=== PATIENT | female | born 1990 | race Caucasian/White ===

== ENCOUNTER → 2017-06-23 | Outpatient (CLI) | payer BC, OTHER | END | disposition home or self-care (01) | LOC: C.LABMFLN 12:08 | PROVIDERS: ATTEND Family Medicine | DX: J02.9 Acute pharyngitis, unspecified (principal) ==

== ENCOUNTER → 2017-08-29 | Outpatient (CLI) | payer OTHER | END | disposition home or self-care (01) | LOC: C.LABMFLN 12:56 | PROVIDERS: ATTEND Family Medicine | DX: J02.9 Acute pharyngitis, unspecified (principal) ==

== ENCOUNTER → 2017-10-10 | Outpatient (CLI) | payer OTHER ==
--- NOTE | 2017-10-10 09:40 | DIAGNOSTIC IMAGING REPORT ---
CT OF THE SINUSES WITHOUT CONTRAST FUSION PROTOCOL CLINICAL HISTORY: Recurrent acute and chronic sinusitis. COMPARISON STUDY: No previous studies for comparison. TECHNIQUE: Axial images of the sinuses were obtained without intravenous contrast according to Fusion protocol. Coronal reformats were viewed. FINDINGS: Visualized portions of the intracranial contents are unremarkable on this unenhanced exam. The mastoid air cells are clear. The ossicles are intact. There is no fluid within the middle ears. The orbits are within normal limits. Mild polypoid mucosal thickening of the sinuses is noted, most evident within the left maxillary and sphenoid sinuses. The ostiomeatal complexes are patent. The frontal sinuses are clear. Ethmoid sinuses are clear. The right maxillary sinus is clear. Mild rightward deviation of the nasal septum with spur formation is noted. There is no mass or bony destruction within the sinuses or nasal cavity. IMPRESSION: 1. Mild polypoid mucosal thickening of the left maxillary and sphenoid sinuses. No CT evidence for acute sinusitis. Patent major drainage pathways. 2. Mild rightward deviation of the nasal septum with spur formation. Electronically signed by: Abdullahi Mei M.D. 10/10/2017 9:39 AM Dictated Date/Time: 10/10/2017 9:36 AM
== END | disposition home or self-care (01) ==
LOC: C.CTS 09:13
DX: J32.9 Chronic sinusitis, unspecified (principal); K21.9 Gastro-esophageal reflux disease without esophagitis